=== PATIENT | male | born 2000 | race Caucasian/White ===

== ENCOUNTER 2023-06-10 08:16 | Emergency (ER) | payer OTHER, SELFPAY ==
[2023-06-10 08:24] VITALS: BP 111/65; PULSE 120; O2SAT 100
[2023-06-10 08:30] VITALS: BP 116/67; PULSE 122; O2SAT 100
[2023-06-10 08:32] VITALS: BP 111/65; PULSE 129; RESP 16; TEMP 37.4; O2SAT 100; BMI 25.5
--- NOTE | 2023-06-10 08:33 | ED.NAVMDI ---
HPI - Nausea/Vomiting/Diarrhea General Chief complaint: Upper Respiratory Symptoms Stated complaint: n/v/d, dehydration Time Seen by Provider: 06/10/23 08:22 History of Present Illness HPI Narrative: Nausea, vomiting, diarrhea since midnight. Recently returned from deployment. Significant other works as a nanny, recent contact with adenovirus. Denies abdominal pain. Related Data Previous Rx's Medication Instructions Recorded ondansetron 4 mg disintegrating 4 mg PO Q8H PRN nausea and 06/10/23 tablet vomiting #30 tabs Allergies Allergy/AdvReac Type Severity Reaction Status Date / Time No Known Drug Allergies Allergy Verified 06/10/23 08:48 Review of Systems Review of Systems Narrative: Otherwise negative Patient History Social History Smoking Status: Never smoker Exam Initial Vital Signs Initial Vital Signs: Vital Signs Pulse Rate 120 H 06/10/23 08:24 Blood Pressure 111/65 06/10/23 08:24 Pulse Oximetry 100 06/10/23 08:24 Const: Awake, alert, no acute distress, nontoxic appearing ENT: Atraumatic, dentition normal, mucous membranes moist Cardiac: regular rate, regular rhythm RESP: unlabored, clear bilaterally, no wheezing GI: Atraumatic, soft, nontender, nondistended, no rebound, no guarding Skin: Warm, Dry, intact, no rashes Neuro: AO x3, CN II-XII grossly intact, moves all extremities Course Orders Ordered: Discontinued Medications Ondansetron HCl (Ondansetron 4 Mg Odt) 4 mg SL NOW ONE Stop: 06/10/23 08:24 Last Admin: 06/10/23 08:49 Dose: 4 mg Documented By: RB Vital Signs Vital signs: Vital Signs - 8 hr 06/10/23 09:57 Temperature 101.2 F H Pulse Rate 122 H Respiratory Rate 18 Blood Pressure 114/66 Pulse Oximetry 98 Oxygen Delivery Method Room Air MDM - Nausea/Vomiting/Diarrhea Differential Diagnosis Differential diagnosis: Likely traveler's diarrhea, food poisoning and gastroenteritis Lab Data Labs: Lab Results 06/10/23 Range/Units 08:25 Chlamy pneumoniae PCR Not detected (Not Detect) Adenovirus (PCR) Not detected (Not Detect) B.parapertussis DNA PCR Not detected (Not Detecte) Coronavirus OC43 (PCR) Not detected (Not Detect) Coronavirus HKU1 (PCR) Not detected (Not Detect) Coronavirus 229E (PCR) Not detected (Not Detect) SARS-CoV-2 (PCR) Detected H (Not Detecte) Coronavirus NL63 (PCR) Not detected (Not Detect) Human Metapneumovir PCR Not detected (Not Detect) Influenza Type A (PCR) Not detected (Not Detect) Influenza Type B (PCR) Not detected (Not Detect) M. pneumoniae (PCR) Not detected (Not Detect) Parainfluenza 1 (PCR) Not detected (Not Detect) Parainfluenza 2 (PCR) Not detected (Not Detect) Parainfluenza 3 (PCR) Not detected (Not Detect) Parainfluenza 4 (PCR) Not detected (Not Detect) RSV (PCR) Not detected (Not Detect) Entero/Rhino (PCR) Not detected (Not Detect) MDM Narrative Medical decision making narrative: Less than 12 hours of symptoms. Abdomen soft, no indication for blood work or advanced imaging at this time. Given Zofran subsequently tolerated p.o. fluids. Patient tested positive for COVID-19. Supportive measures counseled for home. Note for work provided. Discharge Plan Departure Patient Disposition: Home Clinical Impression: COVID-19, Vomiting and diarrhea Instructions: DI for Vomiting -- Adult, COVID-19 Prescriptions: New ondansetron 4 mg tablet,disintegrating 4 mg PO Q8H PRN (Reason: nausea and vomiting) Qty: 30 0RF Stand Alone Forms: Patient Portal/API, Work Release Note
[2023-06-10] MEDS: ONDANSETRON 4 MG ODT SL (08:49)
[2023-06-10 09:24] LABS: Adenovirus Not Detected (Not Detect); B. parapertussis Not Detected (Not Detecte); Bordetella pertussis Not Detected (Not Detect); Chlamydophila pneumoniae Not Detected (Not Detect); Coronavirus 229E Not Detected (Not Detect); Coronavirus HKU1 Not Detected (Not Detect); Coronavirus NL 63 Not Detected (Not Detect); Coronavirus OC43 Not Detected (Not Detect); Human Metapneumovirus Not Detected (Not Detect); Human Rhinovirus/Enterovirus Not Detected (Not Detect); Influenza A Not Detected (Not Detect); Influenza B Not Detected (Not Detect); Mycoplasma pneumoniae Not Detected (Not Detect); Parainfluenza Virus 1 Not Detected (Not Detect); Parainfluenza Virus 2 Not Detected (Not Detect); Parainfluenza Virus 3 Not Detected (Not Detect); Parainfluenza Virus 4 Not Detected (Not Detect); Respiratory Syncytial Virus Not Detected (Not Detect)
[2023-06-10 09:47] LABS: SARS- CoV-2 Detected (Not Detecte)
[2023-06-10 09:57] VITALS: BP 114/66; PULSE 122; RESP 18; TEMP 38.4; O2SAT 98
== END 2023-06-10 09:59 | disposition home or self-care (01) ==
PROVIDERS: Emergency Provider Emergency Medicine
DX: U07.1 COVID-19 (principal); R11.2 Nausea with vomiting, unspecified; R19.7 Diarrhea, unspecified
CPT/HCPCS: 87633; 99282; 99283

== ENCOUNTER → 2024-10-25 09:28 | Outpatient (CLI) | payer OTHER, SELFPAY ==
[2024-10-25 10:31] LABS: Influenza A - CEPHEID Flu A NEGATIVE (NEGATIVE); Influenza B - CEPHEID Flu B NEGATIVE (NEGATIVE); Respiratory Syncytial Virus Negative (Negative)
[2024-10-25 12:02] LABS: COVID-19 CEPHEID 4-PLEX PCR Negative (Negative)
== END ==
PROVIDERS: Visit Provider Chiropractor
DX: J02.9 Acute pharyngitis, unspecified (principal); R05.1 Acute cough
CPT/HCPCS: 0241U; 87070; 87147